=== PATIENT | male | born 2000 | race Two or more races ===

== ENCOUNTER → 2020-03-25 | Outpatient (CLI) | payer BC ==
[~2020-03-25] VITALS: Ht 170.2 cm; Wt 81.6 kg
[~2020-03-25] MED LIST: ESTR2TAB PO; NORMAL SALINE IV ONE; PANT20TA2 PO; SINCALIDE IV ONE; SPIR100T4 PO
--- NOTE | 2020-03-25 08:29 | RAD ---
EXAM: Abdomen sonogram. HISTORY: Epigastric pain.. TECHNIQUE: Sonographic imaging of the abdomen was performed. COMPARISON: None. FINDINGS: The liver is normal in size. No focal hepatic lesion is seen. The common bile duct is normal in caliber. The gallbladder is unremarkable. The right kidney is unremarkable. The pancreas and inferior vena cava are partially obscured due to bowel gas. IMPRESSION: Unremarkable abdomen sonogram, with limited abduction of the midline structures due to bowel gas. Electronically signed by: Angela Andrews MD (03/25/2020 8:26 AM) [facility]
--- NOTE | 2020-03-25 11:55 | RAD ---
INDICATION: Abdomen pain. COMPARISON: None. TECHNIQUE: 5.5mCi of Tc99m Choletec was injected intravenously followed by scintigraphic images of the abdomen. 1.6 mcg of CCK was then injected and a gallbladder ejection fraction was calculated. FINDINGS: Appropriate radiotracer clearance from the blood pool. Appropriate radiotracer excretion into the biliary tree. Prompt passage of contrast into the small bowel. Visualization of the gallbladder prior to the 60 minute time point. Gallbladder ejection fraction is 67 percent. IMPRESSION: 1. No scintigraphic evidence of acute cholecystitis or high grade biliary obstruction. 2. No evidence of biliary dyskinesia. Electronically signed by: Tiago Montejo MD (03/25/2020 11:53 AM) [id number]
== END ==
LOC: US 07:50
PROVIDERS: ATTEND Internal Medicine Gastroenterology
DX: R10.13 Epigastric pain (principal)
CPT/HCPCS: 76705; 78227; A9537; J2805

== ENCOUNTER → 2020-04-12 | Outpatient (CLI) | payer BC ==
[~2020-04-12] MED LIST changes: -NORMAL SALINE IV ONE; -SINCALIDE IV ONE
--- NOTE | 2020-04-12 09:41 | RAD ---
US HEAD/NECK SOFT TISSUE 04/12/2020 7:59 AM INDICATION: Swollen lymph nodes, dysphagia COMPARISON: None available. TECHNIQUE: Sonographic evaluation of the right neck was performed in the area of palpable abnormalit y. FINDINGS/ IMPRESSION: 1. Recommend a lymph node measures 3.7 x 3.6 x 1.6 cm. There is normal echotexture of the submandibul ar gland without suspicious mass. 2. A right submandibular lymph node is identified with normal appearance of the hilum and reniform mo rphology measuring 0.8 x 0.6 x 0.3 cm. No cystic or solid mass is identified. If there is persistent clinical concern, further evaluation with CT neck with contrast could be of benefit. Electronically signed by: Mervat Lozano MD (04/12/2020 9:39 AM) [facility]
--- NOTE | 2020-04-12 13:30 | RAD ---
Gastric Emptying Study Indication: GERD, swollen lymph nodes, dysphasia. Procedure: Anterior and posterior projection static images are obtained over the stomach following or al administration of 2.2 mCi of 99 M technetium sulfur colloid in a solid meal. Time points include a n immediate baseline, and 1, 2, 3, and 4 hours post ingestion. Findings: There is progressive emptying of the stomach on sequential images. Percentage retention at one hour is 54% (normal 34.8-91%). Two hours 34% (normal 2.7-60%). Three hours 24% (normal 0.5-28%). Four hours 7% (normal 0-10%). The calculated T1/2 of gastric emptying is 72 minutes. 45-90 minutes is considered normal. IMPRESSION: Normal 4 hour protocol gastric emptying study. Electronically signed by: Aries Sullivan MD (04/12/2020 1:27 PM) [id number]
== END ==
LOC: US 07:59
PROVIDERS: ATTEND Internal Medicine Gastroenterology
DX: K21.9 Gastro-esophageal reflux disease without esophagitis (principal); R13.10 Dysphagia, unspecified; R60.9 Edema, unspecified
CPT/HCPCS: 76536; 78264; A9541